=== PATIENT | male | born 2000 | race Caucasian/White ===

== ENCOUNTER 2022-03-25 07:43 | Emergency (ER) | payer OTHER ==
[2022-03-25 07:57] VITALS: BP 146/88
== END 2022-03-25 08:23 | disposition home or self-care (01) ==
LOC: ED 07:43 → EDBD 07:43 → ED 08:17
DX: B34.9 Viral infection, unspecified (principal); R11.2 Nausea with vomiting, unspecified; Z28.310 Unvaccinated for COVID-19